=== PATIENT | female | born 1985 | race Native Hawaiian/Other Pacific Islander ===

== ENCOUNTER 2022-05-27 16:16 | Emergency (ER) | payer OTHER ==
[~2022-05-27] VITALS: Ht 162.6 cm; Wt 77.1 kg
[2022-05-27 17:04] LABS: PLATELET COUNT 320 K/uL (152-353)
[2022-05-27 19:36] VITALS: BP 141/79; TEMP 98.6
== END 2022-05-27 19:36 | disposition home or self-care (01) ==
LOC: ED 16:16
PROVIDERS: Family Medicine
DX: N39.0 Urinary tract infection, site not specified (principal); H10.89 Other conjunctivitis; M25.062 Hemarthrosis, left knee; X58.XXXA Exposure to other specified factors, initial encounter; Y93.89 Activity, other specified; Y92.89 Other specified places as the place of occurrence of the external cause
CPT/HCPCS: 36415; 80307; 81000; 85027; 87088; 99283